=== PATIENT | male | born 1955 | race Caucasian/White ===

== ENCOUNTER 2022-09-30 09:50 | Emergency (ER) | payer MEDICAID, MEDICARE ==
[~2022-09-30] VITALS: Ht 170.2 cm; Wt 70.4 kg
[~2022-09-30 09:50] MED LIST: HYDR-4383 PO
[2022-09-30 09:54] VITALS: BP 175/102
[2022-09-30] MEDS ORDERED: DOXYCYCLINE 100MG CAPSULE PO STA (11:59)
[2022-09-30] MEDS ORDERED: DOXY-1 PO (12:04)
== END 2022-09-30 12:23 | disposition home or self-care (01) ==
LOC: ER 09:50
DX: L03.113 Cellulitis of right upper limb (principal); I10 Essential (primary) hypertension; J44.9 Chronic obstructive pulmonary disease, unspecified; F12.10 Cannabis abuse, uncomplicated; Z88.0 Allergy status to penicillin; Z79.899 Other long term (current) drug therapy
CPT/HCPCS: 73110; 99283